=== PATIENT | male | born 2000 | race Caucasian/White ===

== ENCOUNTER 2023-04-20 07:01 | Day surgery (SDC) | payer BC ==
[~2023-04-20] VITALS: Ht 160 cm; Wt 44.5 kg
[~2023-04-20 07:01] MED LIST: CLINDAMYCIN 300 MG/50 ML D5W 50 ML IV SCH
[2023-04-20] MEDS ORDERED: MIDAZOLAM HCL 5 MG/5 ML VIAL ONE (07:54)
[2023-04-20 14:04] VITALS: BP_SYST 109; PULSE 57; RESP 18; TEMP 98.9; O2SAT 100
== END 2023-04-20 08:54 | disposition home or self-care (01) ==
LOC: SDS 07:01 → SMU 07:02 → SDS 08:54
PROVIDERS: ATTEND Otolaryngology
DX: J35.01 Chronic tonsillitis (principal); Z53.8 Procedure and treatment not carried out for other reasons
CPT/HCPCS: 87081; J3490; J2250; J7120